=== PATIENT | male | born 1960 | race Caucasian/White ===

== ENCOUNTER 2022-01-09 07:04 | Outpatient (CLI) | payer OTHER, SELFPAY ==
--- NOTE | 2022-01-09 07:15 | MR_ITS ---
[address] [address] Phone:?[phone] Fax:?[phone] Referring Physician Information: Karlos Boykin M.D. [id number] [facility] [address] Phone:?[phone] Fax:?[phone] Patient:?Isaías Chavez D.O.B:?1960 Sex:?Male Phone:?[phone] [facility] MRN:?[id number] Exam Date:?01/09/2022 ? EXAM: MRI of the LEFT SHOULDER, without contrast CLINICAL INFORMATION: Male, 61 years old, with left shoulder pain. INDICATION: Evaluate shoulder pain. PRIOR SURGERY: None reported. PLAIN FILMS: None available. COMPARISONS: No prior MRIs available. TECHNICAL INFORMATION: Using a 1.5T MR scanner and a localizing surface coil: coronal obliques: PD, T2FS sagittal obliques: T2, PDFS axials: PD, PDFS SEDATION: None CONTRAST: None FINDINGS: Bones: Proximal humerus: No fracture or marrow edema/pathology. No humeral Hill-Sachs or reverse Hill-Sachs lesion/impaction or contusion. Glenoid: No fracture or marrow edema/pathology. No osseous [place] lesion. Rotator cuff and muscles/tendons: Supraspinatus: Mild supraspinatus tendinopathy with articular surface fraying, but without discrete tear. Infraspinatus: Mild infraspinatus tendinopathy, with articular surface fraying, but without discrete tear. Teres minor: No tendinopathy, tear or atrophy. Subscapularis: Mild tendinopathy of the superior distal subscapularis with partial-thickness interstitial tearing at the superior leading edge of the tendon over an area measuring 9 x 14 mm and involving approximately 50% of the tendon thickness (sagittal T2 series 8 image 10 and axial PD series 3 image 17). Deltoid: No strain or atrophy. Coracoacromial arch: Acromion morphology: The acromion has type II morphology. No discrete subacromial osseous spur or os acromiale. Acromiohumeral space: The acromiohumeral space is within normal limits. Coracohumeral space: The coracohumeral space is within normal limits. Acromioclavicular joint: Joint: Mild AC joint arthropathy with 3 mm of inferior osteophytosis that results in a supraspinatus contour abnormality (sagittal PD series 7 image 18 and coronal PD series 5 image 11). Ligaments: Coracoclavicular ligaments are intact. Bursae: Subacromial-subdeltoid: Mild-moderate subacromial-subdeltoid bursal thickening/edema. Subcoracoid: No convincing subcoracoid bursal thickening/bursitis. Biceps tendon: The long head of the biceps tendon is present within the bicipital groove inferiorly, but becomes slightly medially subluxated at the lesser tuberosity. Moderate tendinopathy and fraying of the intra-articular biceps long head tendon, without discrete split/tear (sagittal PD series 7 images 8-13). Glenohumeral joint: Effusion/cyst: Small glenohumeral joint effusion. Articular cartilage: Humeral head: No osteochondral abnormalities. Glenoid: No osteochondral abnormalities. Loose bodies: No discrete intra-articular body within the joint. Labrum:?Circumferential degeneration and fraying of the labrum, which is of doubtful clinical significance. No paralabral cyst. Inferior glenohumeral ligament/axillary pouch:?Mild to moderate thickening of the inferior capsuloligamentous structures (coronal PD series 5 images 13-19). Additionally, there is soft tissue thickening throughout the rotator interval and subcoracoid recess (sagittal PD series 7 images 11-16). IMPRESSION: 1. Findings in keeping with a biceps tin injury: -Mild subscapularis tendinopathy with a 9 x 14 mm area of intermediate grade partial-thickness interstitial tearing at the superior leading edge of the tendon. -Slight medial subluxation the biceps long head tendon at the lesser tuberosity. -Moderate tendinopathy and fraying of the articular biceps long head tendon, without discrete split/tear. 2. Findings in keeping with any clinical symptoms of adhesive capsulitis. 3. Mild supraspinatus & infraspinatus tendinopathy, without tear. 4. Mild AC joint arthropathy with inferior osteophytosis that results in a supraspinatus contour abnormality. Additionally, there is mild/moderate subacromial-subdeltoid bursal inflammation. However, the acromiohumeral space is normal. 5. Circumferential degeneration fraying of the labrum, which is of doubtful clinical significance. 6. Small glenohumeral joint effusion. No full-thickness chondral defect or evidence of osteoarthritis. BC Electronically signed on 01/09/2022 12:03:00 PM by Cj Aguila M.D.
== END 2022-01-09 07:05 | disposition home or self-care (01) ==
PROVIDERS: PCP Internal Medicine; Visit Provider Orthopaedic Surgery Sports Medicine
DX: M25.512 Pain in left shoulder (principal); M25.412 Effusion, left shoulder; M75.02 Adhesive capsulitis of left shoulder; S46.912A Strain of unspecified muscle, fascia and tendon at shoulder and upper arm level, left arm, initial encounter
CPT/HCPCS: 73221

== ENCOUNTER 2022-03-21 08:07 | Day surgery (SDC) | payer OTHER, SELFPAY ==
[2022-03-21] VITALS (15 sets, daily range): BP systolic 110–147; BP diastolic 63–96; PULSE 55–75; RESP 6–18; TEMP 36.2–36.8; O2SAT 92–100; BMI 29.5
[2022-03-21] MEDS: SODIUM CHLORIDE 0.9 % (FLUSH) 10 ML SYRINGE IVF (09:05)
[2022-03-21] MEDS: LACTATED RINGERS 1000 ML 1,000 ML 100 ML IV (09:05)
--- NOTE | 2022-03-21 09:34 | SUR.PREOP ---
TIME?OUT:?0934 PT/RN/MDA?VERIFICATION?OF?SURGICAL?SITE,?PROCEDURE,?AND?CONSENT OBTAINED?PRIOR?TO?INVASIVE?PROCEDURE.
[2022-03-21] MEDS: MIDAZOLAM HCL 1 MG/ML inj IVP (09:36)
[2022-03-21] MEDS: fentaNYL 100 MCG/2 ML inj IVP (09:36)
--- NOTE | 2022-03-21 09:45 | P.NB_ITS ---
Nerve Block Nerve Block Time Seen by Provider: 09:35 Date Seen: 03/21/22 Type of block requested by surgeon for post-operative analgesia: supraclavicular Side: left Time out performed: Yes Verification of patient name: Yes Verification of date of : Yes Site marking: alternative site marking Name of person performing procedure: paty Continuous monitoring Was continuous monitoring of O2 sat, B/P, monitoring tech, recorded every 15 minutes?: Yes Procedure Checklist: sterile prep, needles and gloves Ultrasound guided. Images saved: Yes Medications given in 5ml increments after negative aspiration: Ropivicaine %: 0.5 mL: 20 Needle gauge: 22 Decadron (mg): 10 Precedex (mcg): 25 Patient tolerated procedure well: Yes Block Charges Block Charge (with Pro Fee): Brachial Plexus Use of Ultrasound Machine for Block: Yes- US Guidance/pain block
[2022-03-21] MEDS: CEFAZOLIN 2 GM in 0.9 % SODIUM CHLORIDE Mini-bag 100 ML IVPB (10:12)
[2022-03-21] MEDS: EPINEPHrine 1 MG in SODIUM CHLORIDE IRRIG SOLUTION 3,000 ML 9003 MG IRRIGATION ×4 (10:36→11:16)
--- NOTE | 2022-03-21 11:18 | PM.ORPRC ---
Procedure Note Date of procedure: 03/21/22 Procedure: PREOPERATIVE DIAGNOSES: 1. Left shoulder rotator cuff tear-upper border subscapularis. 2. Left shoulder long head of biceps subluxation out of bicipital groove with partial-thickness tearing POSTOPERATIVE DIAGNOSES: 1. Left shoulder rotator cuff tear-upper border subscapularis. 2. Left shoulder long head of biceps subluxation out of bicipital groove with partial-thickness tearing 3. Left shoulder anterior and superior degenerative labral fraying and tearing NAME OF OPERATION: 1. Left shoulder arthroscopic rotator cuff repair-upper border subscapularis. 2. Left shoulder arthroscopic long head of biceps tenodesis 3. Left shoulder arthroscopic limited glenohumeral debridement SURGEON: Karlos Boykin MD PROCESSING MGR: Chano Burks PA-C. Of note, a skilled assistant associate full professor was critical for this case to aide in patient positioning, suture manipulation, arm positioning, instrument positioning, and closure. ANESTHESIA: General plus preoperative supraclavicular block. EBL: Less than 25 mL IMPLANTS: Single 4.75 mm BioComposite SwiveLock suture anchor-Arthrex COMPLICATIONS: None evident INDICATIONS: The patient is a pleasant, 61-year-old male who has experienced left shoulder pain that has been increasing in recent time related to work event/injury.. Physical exam and imaging were consistent with a rotator cuff tear. Given their findings, as well as the weakness and pain, and inadequate response to nonoperative management, recommendation was made for surgery. FINDINGS: Exam under anesthesia revealed stable shoulder with excellent range of motion. The diagnostic arthroscopy revealed healthy chondral surfaces of the glenohumeral joint. The Subscapularis tendon was torn from its upper border with mild-moderate retraction. With this, the long head of biceps was subluxed out of the bicipital groove. The superior rotator cuff tendon was found to be torn in a low-grade partial-thickness manner on both the articular and bursal side minimally regarding the supraspinatus. The labrum was degeneratively torn to the anterior and superior aspects. No loose bodies were identified within the pouch or subscapularis recess. PROCEDURE: Following a thorough discussion of risks, benefits, and alternatives, consent was obtained and the left shoulder was marked. The patient was brought to the operating room and placed supine on the operating table. Induction of anesthesia was completed after preoperative supraclavicular block was administered in preop holding. Appropriate time out was performed identifying proper patient, site, and procedure. 2 g IV Ancef was administered within 1 hour of incision preoperatively. The left upper extremity was prepped and draped in the appropriate sterile fashion using ChloraPrep prep. This was after the patient was positioned in the beach chair with their head in neutral alignment and all bony prominences well padded. The shoulder was insufflated with 20mL of normal saline via an 18g spinal needle from a posterior approach. An 11 blade skin incision allowed a blunt trochar to be inserted and diagnostic arthroscopy to be performed with the findings as noted above. An anterior portal was established with an outside in technique. This allowed the probe to be inserted and confirm the diagnostic arthroscopic findings. The shaver was then inserted and allowed debridement of the anterior and superior labrum. [Additionally, the long of the biceps was released approximately 1.5 cm from the bicipital tuberosity after capturing it with a loop n' tack technique for arthroscopic biceps tenodesis. After the luggage tag passage, the FiberLink tail was passed 3 more times further distal down the tendon to ensure excellent holding power on the biceps tendon. This was done after preparing the upper portion of the bicipital groove by debriding it with a combination of shaver, bur on reverse setting, and arthroscopic rasp. The same preparation was performed on the lesser tuberosity and the deep surface of the subscapularis that had been worn. Of note, the remaining biceps stump was debrided/excised with the torpedo shaver. The upper border subscapularis was repaired after debriding the lesser tuberosity with the shaver and [place] cautery. Subscapularis was captured in horizontal mattress fashion with a fiber tape suture. The tails for this subscap repair as well the fiber link tail from long head of the biceps whipstitch were all secured/brought to a single anchor in the lesser tuberosity/long head of the biceps groove junction with excellent reapproximation of the subscap tendon and biceps tendon with good excursion/tension on the subscap. Thereafter, the subacromial space was entered. Here, a complete bursectomy was performed to better evaluate the bursal side of the supraspinatus/infraspinatus. This is found to have low-grade minimal partial-thickness fraying. A blunt probe was not able to penetrate the tissue suggesting its integrity was not in need of surgical repair. The shoulder was placed through range of motion and found to be stable. The rotator cuff was re-probed and found to be stable. Instruments were removed. Excess fluid was drained, closure performed with 4-0 Monocryl and Steri-Strips. Dressings were applied. Sling was applied. The patient was awoken from anesthesia and transferred to the PACU in stable condition. A skilled assistant associate full professor was critical for this case to aid in patient positioning, limb positioning, skill to manipulate arthroscopic instruments and camera, suture management, patient safety, and closure. PLAN: 1. Elbow, forearm, wrist and digit range of motion of operative extremity as tolerated. 2. Encouraged ice. 3. Percocet for pain as needed. 4. Sling at all times except for ROM and showering. 5. Follow up with PA visit in 1-2 weeks for wound check. Initiate physical therapy following that visit for passive range of motion. Initiate active assisted range of motion at 2-3weeks. May do pendulums now.
--- NOTE | 2022-03-21 11:39 | W.ANESCHARGE ---
Anesthesia Charges Start Date/Time Anesthesia Start Date: 03/21/22 Anesthesia Start Time: 11:36 Stop Date/Time Anesthesia Stop Date: 03/21/22 Anesthesia Stop Time: 11:36 Summary Emergency: No
--- NOTE | 2022-03-21 12:12 | W.ANESCHARGE ---
Anesthesia Charges Start Date/Time Anesthesia Start Date: 03/21/22 Anesthesia Start Time: 10:00 Stop Date/Time Anesthesia Stop Date: 03/21/22 Anesthesia Stop Time: 11:36 Summary Emergency: No
--- NOTE | 2022-03-21 13:08 | W.ANESCHARGE ---
Anesthesia Charges Start Date/Time Anesthesia Start Date: 03/21/22 Anesthesia Start Time: 10:00 Stop Date/Time Anesthesia Stop Date: 03/21/22 Anesthesia Stop Time: 11:36 Summary Emergency: No
== END 2022-03-21 13:21 | disposition home or self-care (01) ==
PROVIDERS: PCP Internal Medicine; Visit Provider Orthopaedic Surgery Sports Medicine
PROC: (CPT 29805; principal; 2022-03-21 10:00)
DX: M75.102 Unspecified rotator cuff tear or rupture of left shoulder, not specified as traumatic (principal); S46.112A Strain of muscle, fascia and tendon of long head of biceps, left arm, initial encounter; S43.432A Superior glenoid labrum lesion of left shoulder, initial encounter; S43.082A Other subluxation of left shoulder joint, initial encounter
CPT/HCPCS: 29827; 29828; 29822; 01630; 64415; 76942; C1713; J0171; J0330; J0690; J1100; J2250; J2405; J2704; J2795; J3010; J7120

== ENCOUNTER 2022-06-20 08:00 | Outpatient (RCR) | payer OTHER, SELFPAY | END 2022-12-13 23:59 | disposition home or self-care (01) | PROVIDERS: PCP Internal Medicine; Visit Provider Physician Assistant Surgical | DX: Z98.890 Other specified postprocedural states (principal); Z51.89 Encounter for other specified aftercare | CPT/HCPCS: 97110; 97162 ==

== ENCOUNTER 2023-07-19 06:19 | Outpatient (CLI) | payer OTHER, SELFPAY ==
--- NOTE | 2023-07-19 07:51 | W.ANESCHARGE ---
Anesthesia Charges Start Date/Time Anesthesia Start Date: 07/19/23 Anesthesia Start Time: 07:19 Stop Date/Time Anesthesia Stop Date: 07/19/23 Anesthesia Stop Time: 07:42
--- NOTE | 2023-07-19 07:54 | W.ANESCHARGE ---
Anesthesia Charges Start Date/Time Anesthesia Start Date: 07/19/23 Anesthesia Start Time: 07:19 Stop Date/Time Anesthesia Stop Date: 07/19/23 Anesthesia Stop Time: 07:42
== END 2023-07-19 06:20 | disposition home or self-care (01) ==
LOC: OP CLINIC 06:20
PROVIDERS: PCP Internal Medicine; Visit Provider Internal Medicine
DX: Z12.11 Encounter for screening for malignant neoplasm of colon (principal); K63.5 Polyp of colon; K57.30 Diverticulosis of large intestine without perforation or abscess without bleeding
CPT/HCPCS: 00811; 45380; 88305; J2704

== ENCOUNTER 2024-07-03 07:55 | Outpatient (CLI) | payer OTHER, SELFPAY | END 2024-07-03 07:56 | disposition home or self-care (01) | LOC: NFLDREF 07-08 03:27 | PROVIDERS: PCP Internal Medicine; Referring Provider Internal Medicine; Visit Provider Internal Medicine | DX: Z13.1 Encounter for screening for diabetes mellitus (principal); Z13.6 Encounter for screening for cardiovascular disorders; Z12.5 Encounter for screening for malignant neoplasm of prostate | CPT/HCPCS: 80061; 82947; G0103 ==